=== PATIENT | male | born 1965 | race Caucasian/White ===

== ENCOUNTER → 2017-03-27 | Day surgery (SDC) | payer BC, OTHER ==
[2017-03-14 08:21] VITALS: BMI 47.0
--- NOTE | 2017-03-14 09:02 | PAT Medication Instructions ---
Service Date Mar 14, 2017. Current Home Medication List Aspirin (Aspirin Ec), 81 MG PO QAM Atorvastatin (Lipitor), 40 MG PO QAM Dapagliflozin Propanediol (Farxiga), 5 MG PO QAM Fenofibrate (Tricor ), 134 MG PO QAM Insulin Detemir (Levemir), Unknown Dose SC UD Insulin Isophan/Regular (Novolin 70/30), 1 DOSE SC UD Loratadine (Claritin), 10 MG PO QAM Metformin Hcl (Glucophage), 1,000 MG PO BIDM Omeprazole (Prilosec), 20 MG PO QAM Medication Instructions For Your Scheduled Surgery -Contact your surgeon for instructions for: Aspirin (Aspirin Ec), 81 MG PO QAM - Hold the following medications 48 hours prior to surgery: Metformin Hcl (Glucophage), 1,000 MG PO BIDM - Hold the following medications the morning of surgery: Loratadine (Claritin), 10 MG PO QAM Fenofibrate (Tricor ), 134 MG PO QAM Dapagliflozin Propanediol (Farxiga), 5 MG PO QAM - Take the following medications the morning of surgery with a sip of water: Omeprazole (Prilosec), 20 MG PO QAM Atorvastatin (Lipitor), 40 MG PO QAM OTHERWISE NOTHING TO EAT OR DRINK AFTER MIDNIGHT - Take the following medications as scheduled the day before surgery--with lunch and dinner: Insulin Detemir (Levemir), Unknown Dose SC UD Insulin Isophan/Regular (Novolin 70/30), 1 DOSE SC UD - For Insulin Dependent Diabetic patients: Test blood sugar A.M. of surgery. - If BLOOD SUGAR IS GREATER THAN 150, take half of your regular dose of: Insulin Detemir (Levemir), Unknown Dose SC UD (TAKE 15 UNITS) AND Insulin Isophan/Regular (Novolin 70/30), 1 DOSE SC UD (TAKE 14 UNITS) - If BLOOD SUGAR IS LESS THAN 150, do not take any of your insulin. If you have any questions please call us at [phone] or [phone] or [phone]
[~2017-03-27] VITALS: Ht 175.3 cm; Wt 146.5 kg
[~2017-03-27] MED LIST: ACETAMINOPHEN 325 MG TAB PO PRN; ASPI81TA28 PO; ATOR-24 PO; BACITRACIN OINT 15 GM TUBE ONE; BUPIVACAINE 0.5 % 5 MG/1 ML MPF 30ML VIAL ONE; CEFAZOLIN 3000MG IV PUSH 22.5 ML IV SCH; CEFAZOLIN SOD 2000MG/15 ML IV PUSH IV ONE; CLR10 PO; DAPA1TAB8 PO; DOCU-94 PO; FENO134C2 PO; FENTANYL CITRATE INJ 50 MCG/1 ML 2 ML VIAL ONE; LACTATED RINGER'S 1000ML 1,000 ML IV SCH; LIDOCAINE HCL 1% 20 ML VIAL ONE; LIDOCAINE HCL 2% 2 ML VIAL (20MG/ML) ONE; LVMI SC; METF1000 PO; MIDAZOLAM HCL 1 MG/ML 2ML VIAL ONE; MoRPHine SULFATE 2 MG/ML CARP IV PRN; MoRPHine SULFATE 4 MG/ML 1 ML CARP\\VIAL IV PRN; NVLG INJ; ONDANSETRON INJ 2 MG/ML 2 ML VIAL IV PRN; ONDANSETRON INJ 2 MG/ML 2 ML VIAL ONE; OXYC-57 PO; OXYCODONE/ACETAMINOPHEN 5-325 TAB PO PRN; PRLSR20 PO; PROPOFOL IV EMULSION 10 MG/ML 20 ML VIAL IV ONE; SULF800T23 PO
[2017-03-27 07:56] VITALS: BP 138/89; PULSE 79; TEMP 36.9; O2SAT 96; Ht 175.3 cm; Wt 146.5 kg
--- NOTE | 2017-03-27 11:01 | History & Physical Bridge Note ---
H&P Re-Evaluation Bridge Note: I have examined the patient, reviewed the History & Physical and in the interval since the performance of the History & Physical I have noted the following changes of clinical significance: No changes noted
--- NOTE | 2017-03-27 12:01 | [facility] Post Operative Brief Note ---
Immediate Operative Summary Operative Date Mar 27, 2017. Pre-Operative Diagnosis Hemorrhoid with Rectal Bleeding Post-Operative Diagnosis Hemorrhoid with Rectal Bleeding Procedure(s) Performed Hemorrhoidectomy Surgeon Dr. Roxy Haynes Supervisor Surgeon(s) Samaria Holloway PA-c Estimated Blood Loss 3 ml Findings Consistent with Post-Op Diagnosis Fluids (cc crystalloids) 500ml Specimens Permanent specimen A: Hemorrhoid for Patholgy Drains None Anesthesia Type MAC Complication(s) none Disposition Accompanied Pt To Recover: yes Disposition: Recovery Room / PACU
[2017-03-27 12:10] VITALS: BP 119/62; PULSE 85; TEMP 36.5; O2SAT 98
--- NOTE | 2017-03-27 12:11 | Anesthesiology Progress Note ---
Anesthesia Post Op Note Date & Time Mar 27, 2017 at 12:11 Vital Signs Pain Intensity: 0 Vital Signs Past 12 Hours Date Time Temp Pulse Resp B/P (MAP) Pulse Ox O2 Delivery O2 Flow Rate FiO2 03/27/17 07:56 36.9 79 20 138/89 (105) 96 Room Air Notes Mental Status: alert / awake / arousable, participated in evaluation Pt Amnestic to Procedure: Yes Nausea / Vomiting: adequately controlled Pain: adequately controlled Airway Patency, RR, SpO2: stable & adequate BP & HR: stable & adequate Hydration State: stable & adequate Anesthetic Complications: no major complications apparent
--- NOTE | 2017-03-27 12:13 | Discharge Instructions ---
Discharge Instructions Date of Service Mar 27, 2017. Admission Reason for Admission: Bleeding Hemorrhoids Discharge Discharge Diagnosis / Problem: same Discharge Goals Goal(s): Decrease discomfort, Improve function Activity Recommendations Activity Limitations: as noted below You may shower in 24 hours No limitations on lifting or activity however resume as tolerated No driving while taking narcotic pain medication or until you are pain free . Instructions / Follow-Up Instructions / Follow-Up You may shower in 24 hours Avoid any straining or constipation. Take stool softener (Colace) twice a day for the next 15 days. Especially while taking narcotic pain medication. Take antibiotics as prescribed for 5 days You will be given Narcotic pain medication as needed for moderate to severe pain. This medication may make you drowsy. You may take extra strength Tylenol or Ibuprofen as needed for mild pain Follow-up in surgical office as scheduled, please call office at [phone] if you do not already have an appointment You may have some rectal bleeding for next few days to a week given procedure, this is normal. If profuse bleeding occurs please call office. Current Hospital Diet Patient's current hospital diet: Discharge Diet Recommended Diet: Regular Diet Procedures Procedures Performed: Hemorrhoidectomy Pending Studies Studies pending at discharge: yes List of pending studies: Hemorrhoid pathology will be reviewed at follow up visit Medical Emergencies . Who to Call and When: Medical Emergencies: If at any time you feel your situation is an emergency, please call 911 immediately. . Non-Emergent Contact Non-Emergency issues call your: Primary Care Provider, Surgeon Call Non-Emergent contact if: you have a fever, temperature is above 101, your pain is not controlled, your pain is worsening, your pain is unusual for you, wound has increased drainage, wound has increased redness, wound has increased pain . "Provider Documentation" section prepared by Samaria Noriega. . VTE Core Measure Inpt VTE Proph given/why not?: SCD's [place] Drug Monitoring Program Search Results: patient reviewed within database, no issues identified
[2017-03-27 12:40] VITALS: BP 130/65; PULSE 78; TEMP 36.6; O2SAT 96
--- NOTE | 2017-03-27 19:46 | OPERATIVE REPORT ---
DATE OF OPERATION: 03/27/2017 PREOPERATIVE DIAGNOSIS: Rectal bleeding and hemorrhoid. POSTOPERATIVE DIAGNOSIS: Same. PROCEDURE: Hemorrhoidectomy x2. SURGEON: Roxy Haynes MD MAIL HANDLER: Samaria Holloway. ANESTHESIA: Conscious sedation plus local. ESTIMATED BLOOD LOSS: About 3 mL. FINDINGS: Two external hemorrhoids. COMPLICATIONS: None. INDICATIONS FOR THE PROCEDURE: This is a 51-year-old gentleman who presented with rectal bleeding with hemorrhoids. The patient required to do hemorrhoidectomy. I did talk to patient about the benefit, risk, and alternate procedure. I indicated the risks may include but not limited such as bleeding, infection, rectal pain. The patient understands. He signed informed consent and I answered all questions. DETAILS OF PROCEDURE: We brought patient and put in lithotomy position and patient received SCD on bilateral legs to prevent DVT. Also, patient received 2 gm Ancef IV for prophylactic antibiotic. The patient received conscious sedation by the Anesthesiology. The patient's rectal area was prepped and draped in routine sterile fashion. After a timeout, I injected local anesthesia by using 1% lidocaine mixed with 0.5% Marcaine around the rectal area. Then we found the patient has 2 external hemorrhoids, one located on the 3 o'clock and another one located on 6 o'clock. Then I used harmonic to take down these 2 hemorrhoids, no active bleeding. Then we put the dressing on. The patient tolerated the procedure well. All the instrument, needle and sponge counts were correct x2 at the end of case. The patient was transferred to recovery room in stable condition. After the procedure, I did talk to patient about the OR finding and procedure we did, and also gave patient postop care instructions. The patient understood. I will follow up patient in 1 week in my office. I attest to the content of the Intraoperative Record and any orders documented therein. Any exception s are noted below.
== END | disposition home or self-care (01) ==
LOC: C.ACU 07:15
PROVIDERS: ATTEND Surgery
DX: K64.0 First degree hemorrhoids (principal); K21.9 Gastro-esophageal reflux disease without esophagitis; E11.9 Type 2 diabetes mellitus without complications; E66.01 Morbid (severe) obesity due to excess calories; I73.9 Peripheral vascular disease, unspecified; E78.5 Hyperlipidemia, unspecified; I10 Essential (primary) hypertension; E78.2 Mixed hyperlipidemia; K76.0 Fatty (change of) liver, not elsewhere classified; Z83.3 Family history of diabetes mellitus; Z81.8 Family history of other mental and behavioral disorders; Z87.891 Personal history of nicotine dependence; Z79.84 Long term (current) use of oral hypoglycemic drugs; Z79.4 Long term (current) use of insulin; Z79.82 Long term (current) use of aspirin

== ENCOUNTER 2022-08-14 00:53 | Inpatient (IN) ==
--- NOTE | 2022-08-14 01:08 | Emergency Department Note ---
History of Present Illness General Chief complaint: Syncope (Near Syncope) Stated complaint: NEAR SYNCOPAL EPISODE Time Seen by Provider: 08/14/22 00:55 History of Present Illness This 56-year-old gentleman presents the ER for near syncopal episode. He states he was sitting on his lunch break got sweaty lightheaded and nearly passed out. He checked his blood sugar and it was fine. He is a type II diabetic. He did have some back pain but this is chronic for him. Patient states he feels much better now. Patient denies chest pain, dyspnea, fevers, numbness, tingling, localized weakness. Home Medications Medication Instructions Recorded Confirmed Type aspirin 81 mg tablet,delayed 81 mg PO QAM 03/17/19 12/19/19 History release (Kush Low Dose Aspirin) atorvastatin 40 mg tablet 40 mg PO QAM 03/17/19 12/19/19 History dapagliflozin propanediol 5 mg 5 mg PO QAM 03/17/19 12/19/19 History tablet (Farxiga) fenofibrate micronized 134 mg 134 mg PO QAM 03/17/19 12/19/19 History capsule insulin aspart U-100 100 unit/mL 32 unit subcut QDD 03/17/19 12/19/19 History (3 mL) subcutaneous pen (Novolog FlexPen U-100 Insulin aspart) insulin aspart U-100 100 unit/mL 52 unit subcut QDL 03/17/19 12/19/19 History (3 mL) subcutaneous pen (Novolog FlexPen U-100 Insulin aspart) insulin aspart U-100 100 unit/mL 54 unit subcut QDB 03/17/19 12/19/19 History (3 mL) subcutaneous pen (Novolog FlexPen U-100 Insulin aspart) insulin detemir U-100 100 unit/mL 25 unit subcut BID 03/17/19 12/19/19 History (3 mL) subcutaneous pen (Levemir FlexTouch U-100 Insulin) liraglutide 0.6 mg/0.1 mL (18 mg/3 1.8 mg subcut HS 03/17/19 12/19/19 History mL) subcutaneous pen injector (Victoza 2-Douglas) lisinopril 10 mg tablet 10 mg PO QAM 03/17/19 12/19/19 History loratadine 10 mg tablet 10 mg PO QAM 03/17/19 12/19/19 History metformin 1,000 mg tablet 1,000 mg PO BID 03/17/19 12/19/19 History montelukast 10 mg tablet 10 mg PO QAM 03/17/19 12/19/19 History teqgbaxa-otuunwgg-tonkv acid 400 1 tab PO QAM 03/17/19 12/19/19 History mcg-vit K 20 mcg-lycop 300 mcg tablet (Men's One Daily) omeprazole magnesium 20 mg 20 mg PO QAM 03/17/19 12/19/19 History tablet,delayed release (Prilosec OTC) Allergies Allergy/AdvReac Type Severity Reaction Status Date / Time No Known Allergies Allergy Verified 12/19/19 08:54 Past Med/Surg History Medical History (Updated 08/14/22 @ 02:17 by Lindsey Lutz PA-C) Arthritis, lumbar spine Diabetes mellitus, type 2 GERD (gastroesophageal reflux disease) Hyperlipidemia Hypertension Morbid obesity with BMI of 45.0-49.9, adult Surgical History History of carpal tunnel surgery of right wrist History of hand surgery left hand "scraped finger with a needle" History of removal of cyst off right elbow History of tooth extraction Hx of colonoscopy Status post trigger finger release right hand 2 fingers Family History Mother Family history of diabetes mellitus Other No family history of adverse response to anesthesia Social History Smoking Status: Former smoker Tobacco Type: Cigarettes Second Hand Exposure: No; Do You Dip or Chew Tobacco: No; Hx Alcohol Use: No Hx Substance Use: No Preferred Language: Latvian Communication Ability: Effective Mobile Practice Lead Required: No Beliefs That Will Affect Care: None Current Living Situation: Family Current Living Situation Comment: Lives with mom and sister Feels Safe at Home: Yes Assistive Devices: Glasses Review of Systems A total of 10 systems reviewed and were otherwise negative Physical Exam Vital Signs Vital Signs - 24 hr 08/14/22 01:00 08/14/22 01:07 08/14/22 01:32 Temperature 37.3 C Temperature Source Oral Pulse Rate 90 86 Respiratory Rate 20 Blood Pressure 120/90 Blood Pressure Mean 100 Pulse Oximetry 99 96 Oxygen Delivery Method Room Air Room Air Sepsis Recent Fever Within 48 Hours No Sepsis New/Unexplained Change in Mental Status No Sepsis Action Taken by Nursing No Action Required VITALS: Vitals are noted on the nurse's note and reviewed by myself. Vital signs stable. GENERAL: Pleasant patient, in no acute distress, nondiaphoretic, well-developed well-nourished. SKIN: The skin was without rashes, erythema, edema, or bruising. There is no tenting of the skin. Capillary reflex less than 2 seconds. HEAD: Normocephalic atraumatic. EARS: External auditory canals clear, EYES: Pupils equal round and reactive to light and accommodation. Conjunctivae without injection, sclerae without icterus. Extraocular movements intact. NOSE: Patent, turbinates without inflammation or discharge. MOUTH: Mucous membranes moist. Pharynx without erythema or exudate. Uvula midline. Airway patent. Tongue does not deviate. NECK: Supple without nuchal rigidity. No lymphadenopathy. No thyromegaly. Cervical spine is nontender. No JVD. HEART: Regular rate and rhythm LUNGS: Clear to auscultation bilaterally without wheezes, rales or rhonchi. No retractions or accessory muscle use. ABDOMEN: Positive bowel sounds x 4. Normal tympanic percussion. Soft, nontender, without masses or organomegaly. Shah sign negative. No guarding or rebound tenderness. No CVA tenderness MUSCULOSKELETAL: No muscle atrophy, erythema, or edema noted. NEURO: Patient was alert and oriented to person place and time. Normal sensation to light and sharp touch. No focal neurological deficits. Course Administered Medications Magnesium Sulfate/Dextrose (Magnesium Sulfate / D5w) 1 gm in 100 mls @ 100 m ls/hr IV Q1H [facility] Stop: 08/14/22 04:05 Last Admin: 08/14/22 02:14 Dose: 100 mls/hr Documented By: JILL Discontinued Medications Sodium Chloride (Nss 1000ml) 1,000 mls @ 999 mls/hr IV .Q1H1M [facility] Stop: 08/14/22 02:15 Last Infusion: 08/14/22 02:15 Dose: 0 mls/hr Documented By: Admin: 08/14/22 01:49 Dose: 999 mls/hr Documented By: JILL Medical Decision Making Medical Records Attestation: I reviewed the patient's medical records. Home Medications Current Medication List: was personally reviewed by me Laboratory Data Attestation: I reviewed the patient's lab results. 08/14/22 01:15 08/14/22 01:15 Lab Results 08/14/22 08/14/22 08/14/22 Range/Units 01:15 01:15 01:15 WBC 16.57 H (4.8-10.8) K/ul RBC 5.83 (4.70-6.10) M/uL Hgb 18.1 H (14.0-18.0) g/dl Hct 51.5 (42.0-52.0) % MCV 88.3 (80.0-100.0) fL MCH 31.0 (25.0-34.0) pg MCHC 35.1 (32.0-36.0) g/dL RDW Std Deviation 43.2 (36.4-46.3) fL RDW Coeff of Jaye 13.6 (11.5-14.5) % Plt Count 217 (130-400) K/uL MPV 10.5 (9.4-12.4) fL Immature Gran % (Auto) 1.0 % Neut % (Auto) 73.7 % Lymph % (Auto) 17.0 % [place] % (Auto) 6.8 % Eos % (Auto) 1.0 % Baso % (Auto) 0.5 % Neut # (Auto) 12.22 H (1.40-6.50) K/uL Lymph # (Auto) 2.82 (1.2-3.4) K/uL [place] # (Auto) 1.13 H (0.11-0.59) K/uL Eos # (Auto) 0.16 (0-0.50) K/uL Baso # (Auto) 0.08 (0-0.2) K/uL Immature Gran # (Auto) 0.16 (0.01-0.20) K/uL Sodium 131 L (136-145) mmol/L Potassium 3.8 (3.5-5.1) mmol/L Chloride 95 L (98-107) mmol/L Carbon Dioxide 24 (21-32) mmol/L Anion Gap 12 H (3-11) BUN 27 H (6-23) mg/dl Creatinine 2.28 H (0.6-1.4) mg/dl Est Cr Clr Drug Dosing 51.2 ml/min Est GFR ( Amer) 36.3 ml/min Est GFR (Non-Af Amer) 31.4 ml/min BUN/Creatinine Ratio 11.8 (10-20) Glucose 295 H (70-99(Fasting)) mg/dl Calcium 10.0 (8.6-10.3) mg/dl Magnesium 1.4 L (1.7-2.4) mg/dl Total Bilirubin 0.5 (0.2-1.0) mg/dl AST 28 (13-39) U/L ALT 43 (7-52) U/L Alkaline Phosphatase 65 (34-104) U/L Troponin I High Sens 11.9 (0-20) pg/ml Total Protein 8.0 (6.0-8.3) gm/dl Albumin 4.4 (3.4-5.0) gm/dl Globulin 3.6 (2.5-4.0) gm/dl Albumin/Globulin Ratio 1.2 (0.9-2) TSH 23.753 H (0.300-4.500) uIu/ml SARS-CoV-2, RNA, NAAT (NEGATIVE) 08/14/22 Range/Units 01:15 WBC (4.8-10.8) K/ul RBC (4.70-6.10) M/uL Hgb (14.0-18.0) g/dl Hct (42.0-52.0) % MCV (80.0-100.0) fL MCH (25.0-34.0) pg MCHC (32.0-36.0) g/dL RDW Std Deviation (36.4-46.3) fL RDW Coeff of Jaye (11.5-14.5) % Plt Count (130-400) K/uL MPV (9.4-12.4) fL Immature Gran % (Auto) % Neut % (Auto) % Lymph % (Auto) % [place] % (Auto) % Eos % (Auto) % Baso % (Auto) % Neut # (Auto) (1.40-6.50) K/uL Lymph # (Auto) (1.2-3.4) K/uL [place] # (Auto) (0.11-0.59) K/uL Eos # (Auto) (0-0.50) K/uL Baso # (Auto) (0-0.2) K/uL Immature Gran # (Auto) (0.01-0.20) K/uL Sodium (136-145) mmol/L Potassium (3.5-5.1) mmol/L Chloride (98-107) mmol/L Carbon Dioxide (21-32) mmol/L Anion Gap (3-11) BUN (6-23) mg/dl Creatinine (0.6-1.4) mg/dl Est Cr Clr Drug Dosing ml/min Est GFR ( Amer) ml/min Est GFR (Non-Af Amer) ml/min BUN/Creatinine Ratio (10-20) Glucose (70-99(Fasting)) mg/dl Calcium (8.6-10.3) mg/dl Magnesium (1.7-2.4) mg/dl Total Bilirubin (0.2-1.0) mg/dl AST (13-39) U/L ALT (7-52) U/L Alkaline Phosphatase (34-104) U/L Troponin I High Sens (0-20) pg/ml Total Protein (6.0-8.3) gm/dl Albumin (3.4-5.0) gm/dl Globulin (2.5-4.0) gm/dl Albumin/Globulin Ratio (0.9-2) TSH (0.300-4.500) uIu/ml SARS-CoV-2, RNA, NAAT NEGATIVE (NEGATIVE) Imaging Data Attestation: I personally reviewed and interpreted this imaging study as follows : Radiologist's Impression: Head CT 08/14/22 01:05 Exam(s): CT HEAD Without Contrast EXAM: CT Head Without Intravenous Contrast CLINICAL HISTORY: Reason for exam: syncope, HI. TECHNIQUE: Axial computed tomography images of the head/brain without intravenous contrast. Automated exposure control was utilized for the study. A dose lowering technique was utilized adhering to the principles of ALARA. COMPARISON: None. FINDINGS: Brain: Unremarkable. No hemorrhage. No significant white matter disease. No edema. Ventricles: Unremarkable. No ventriculomegaly. Bones/joints: Unremarkable. No acute fracture. Soft tissues: Unremarkable. Sinuses: Unremarkable as visualized. No acute sinusitis. Mastoid air cells: Unremarkable as visualized. No mastoid effusion. IMPRESSION: Normal CT brain. Electronically signed by: Fidelia Interiano MD 08/14/22 02:16 AM MDM Narrative Prior records/ancillary studies reviewed. Triage Nursing notes reviewed. Additional history obtained from nursing. The patient's history was concerning for syncope. Differential diagnosis: Etiologies such as vasovagal event, infection, hypoglycemia, electrolyte abnormalities, cardiac sources, intracerebral event, toxicologic, neurologic, as well as others were entertained. Physical examination: As above ER treatment provided: IV hydration with normal saline Magnesium was ordered On reassessment the patient felt better. An order was placed for continuous cardiac monitoring. The monitor shows a rate of 60-100 with a sinus rhythm per my interpretation. Diagnostics interpretation by me: ECG: ordered for syncope ECG: Normal sinus, normal intervals, anterior infarct, no acute ST-T wave changes, rate of 88. Impression normal sinus rhythm independently interpreted by myself I think arrhythmia is unlikely. EKG shows normal sinus rhythm with no interval abnormalities such as QT prolongation or WPW. There are no findings to suggest Brugada syndrome. Cardiac monitoring in the emergency department reveals no tachycardic or bradycardic dysrhythmia. Hypertrophic cardiomyopathy was considered but there are no clear historical elements pointing toward this. EKG is not suggestive. The QRS voltage is not extremely large The labs Independently Interpreted by myself revealed elevated creatinine, low magnesium Elevated TSH and T4 levels were ordered Imaging studies: Chest x-ray with no acute consolidation, pneumothorax or free air per my end of interpretation Head CT negative for intracranial bleed per my independent interpretation and report was reviewed as above. Consultation: A consultation was placed with the hospitalist. The case was discussed and diagnostics were reviewed. The patient was evaluated in the ER for further treatment. This appears to be consistent with acute kidney injury, near syncope, abnormal thyroid levels, and low magnesium. Patient was hydrated as above. Magnesium was ordered. Labs and diagnostics were independent interpreted by myself. He was reassessed multiple times. Medicine was consulted and the case was discussed. He will be admitted to the medical service for further evaluation and treatment. By the evaluation outlined above emergent etiologies such as infection, hypoglycemia, intracerebral event, toxicologic, neurologic,as well as others were deemed relatively unlikely. The pt informed about the findings as listed above. All questions were answered and pleased with the treatment. The chart was completed utilizing [email or web address] voice recognition software. Grammatical errors, random word insertions, pronoun errors, and incomplete sentences are an occassional consequence of this system due to software limitations, ambient noise, and hardware issues. Any formal questions or concerns about the content, text, or information contained within the body of this dictation should be directly addressed to the physician pharmacist assistant for clarification. Impression & Plan Near syncope, Acute kidney injury, Hypomagnesemia, Acute hyperglycemia Discharge Plan Visit Data Chief Complaint: Syncope (Near Syncope) Stated Complaint: NEAR SYNCOPAL EPISODE ED Provider: Marisa Monterroso ED Midlevel Provider: Lindsey Lutz Discharge Problem: Near syncope, Acute kidney injury, Hypomagnesemia, Acute hyperglycemia Patient Disposition: Being Evaluated by Hospitalist Condition: Good Forms Stand Alone Forms: My [facility] Blueprint Medicines Prescriptions Prescriptions: No Action atorvastatin 40 mg Tablet 40 mg PO QAM aspirin [Kush Low Dose Aspirin] 81 mg Tablet,Delayed Release (Dr/Ec) 81 mg PO QAM fenofibrate micronized 134 mg Capsule 134 mg PO QAM metformin 1,000 mg Tablet 1,000 mg PO BID lisinopril 10 mg Tablet 10 mg PO QAM montelukast 10 mg Tablet 10 mg PO QAM loratadine 10 mg Tablet 10 mg PO QAM insulin aspart U-100 [Novolog FlexPen U-100 Insulin] 100 unit/mL (3 mL) Insulin Pen 54 unit SUBCUT QDB insulin aspart U-100 [Novolog FlexPen U-100 Insulin] 100 unit/mL (3 mL) Insulin Pen 52 unit SUBCUT QDL insulin aspart U-100 [Novolog FlexPen U-100 Insulin] 100 unit/mL (3 mL) Insulin Pen 32 unit SUBCUT QDD omeprazole magnesium [Prilosec OTC] 20 mg Tablet,Delayed Release (Dr/Ec) 20 mg PO QAM Levemir FlexTouch U100 Insulin 100 unit/mL (3 mL) Insulin Pen 25 unit SUBCUT BID Rx Instructions: 12.5 units taken Victoza 2-Douglas 0.6 mg/0.1 mL (18 mg/3 mL) Pen Injector 1.8 mg SUBCUT HS Men's One Daily 400-20-300 mcg Tablet 1 tab PO QAM Farxiga 5 mg Tablet 5 mg PO QAM Referrals Referrals: Krystina Buckner, [Primary Care Provider] -
[2022-08-14] MEDS ORDERED: SODIUM CHLORIDE 0.9% 1000ML 1,000 ML IV SCH (01:15)
[2022-08-14 01:32] LABS: Basophils # (auto) 0.08 K/uL (0-0.2); Basophils % (auto) 0.5 %; Eosinophils # (auto) 0.16 K/uL (0-0.50); Hematocrit (blood only) 51.5 % (42.0-52.0); Hemoglobin 18.1 g/dl (14.0-18.0); Immature Granulocytes # (auto) 0.16 K/uL (0.01-0.20); Lymphocytes # (auto) 2.82 K/uL (1.2-3.4); Mean Corpuscular Hgb Conc 35.1 g/dL (32.0-36.0); Mean Corpuscular Volume 88.3 fL (80.0-100.0); Mean Platelet Volume 10.5 fL (9.4-12.4); Monocytes # (auto) 1.13 K/uL (0.11-0.59); Monocytes % (auto) 6.8 %; Neutrophils # (auto) 12.22 K/uL (1.40-6.50); Neutrophils % (auto) 73.7 %; Platelet Count 217 K/uL (130-400); RDW Coefficient of Variation 13.6 % (11.5-14.5); RDW Standard Deviation 43.2 fL (36.4-46.3); Red Blood Count 5.83 M/uL (4.70-6.10); White Blood Count 16.57 K/ul (4.8-10.8)
[2022-08-14 01:55] LABS: Albumin Globulin Ratio 1.2 (0.9-2); Albumin Level 4.4 gm/dl (3.4-5.0); BUN Creatinine Ratio 11.8 (10-20); Bilirubin,Total 0.5 mg/dl (0.2-1.0); Creatinine Clr Calc Pharmacy 51.2 ml/min; Est GFR (African American) 36.3 ml/min; Est GFR (Non-African American) 31.4 ml/min; Globulin 3.6 gm/dl (2.5-4.0); Magnesium 1.4 mg/dl (1.7-2.4); Potassium 3.8 mmol/L (3.5-5.1)
[2022-08-14 02:02] LABS: Troponin I High Sensitivity 11.9 pg/ml (0-20)
[2022-08-14 02:03] LABS: Thyroid Stimulating Hormone 23.753 uIu/ml (0.300-4.500)
[2022-08-14] MEDS: MAGNESIUM SULFATE / D5W 1 GM/100 ML BAG IV SCH ×2 (02:14→03:31)
--- NOTE | 2022-08-14 02:17 | CT Scan Report ---
Exam(s): CT HEAD Without Contrast EXAM: CT Head Without Intravenous Contrast CLINICAL HISTORY: Reason for exam: syncope, HI. TECHNIQUE: Axial computed tomography images of the head/brain without intravenous contrast. Automated exposure control was utilized for the study. A dose lowering technique was utilized adhering to the principles of ALARA. COMPARISON: None. FINDINGS: Brain: Unremarkable. No hemorrhage. No significant white matter disease. No edema. Ventricles: Unremarkable. No ventriculomegaly. Bones/joints: Unremarkable. No acute fracture. Soft tissues: Unremarkable. Sinuses: Unremarkable as visualized. No acute sinusitis. Mastoid air cells: Unremarkable as visualized. No mastoid effusion. IMPRESSION: Normal CT brain. Electronically signed by: Fidelia Interiano MD 08/14/22 02:16 AM
[2022-08-14] MEDS ORDERED: ALBUMIN 25% 25 GM/100 ML VIAL IV ONE (02:27)
[2022-08-14 02:40] LABS: T4 Free Thyroxine 0.84 ng/dl (0.61-1.60)
--- NOTE | 2022-08-14 03:24 | History & Physical Report ---
Date of Service August 14, 2022 Assessment & Plan (1) ARF (acute renal failure): Plan: Suspect hypovolemia, clinical dehydration AGMA secondary to above Syncope likely orthostasis given borderline BP at the ER rule out arrhythmia, obstructive cardiac pathology hyperlipidemia on statin Rx bronchial asthma, stable hx PVD as per records DM 2 insulin requiring, suboptimal control as of recent hemoglobin A1c of 10.2 last June 2022 Subclinical hypothyroidism past tobacco abuse Medical telemetry Baseline UA, monitor creatinine response to IVF Renal ultrasound, nephrology consult if without improvement in kidney function Appropriate to hold home BP meds for now given borderline BP Check orthostatic vitals, TTE for syncope work-up Basal bolus insulin adjusted for decreased renal function, ISS BG goal 1 10-1 40, carb count coverage Initiate levothyroxine, recheck outpatient TSH next month DVT prophylaxis. Heparin subcu Full code Text document was generated using [employer] voice recognition software. It may contain grammatical or spelling errors. Kindly contact undersigned for clarification of any documentation item in question. History of Present Illness Chief Complaint: Syncope Primary Care Provider: Krystina Buckner DO History obtained from patient and records. Medical history significant for hypertension, hyperlipidemia, bronchial asthma, PVD as per records, DM 2 insulin requiring, past tobacco abuse. Patient returned to work at [employer] yesterday after being off for a month to recover from elective outpatient trigger finger release surgery at [facility]. Uneventful postop recovery. Pain controlled without OTC NSAID intake. Patient was stocking when he started not feeling well, dizzy, felt like he was going to pass out. No headache, no chest pain, no shortness of breath, no abdominal pain. Patient alerted his work mates later told him that he looked very pale. Transient syncopal event witnessed by workmates. Patient did not fall because of workmates supporting him. No witnessed seizures, tongue biting, incontinence. Patient woke up after a few moments. Patient sent to the ER for evaluation. Currently feels much better after IV fluids. Lowest SBP at the ER 100s. Medical History as above Surgical History : Multiple trigger finger release surgeries, carpal tunnel surgery Family History : Dementia, DM, stroke, alcoholism Personal/Social history past tobacco abuse, No EtOH intake, [employer] employee Allergies Allergy/AdvReac Type Severity Reaction Status Date / Time No Known Allergies Allergy Verified 12/19/19 08:54 Home Medications Medication Instructions Recorded Confirmed Type aspirin 81 mg tablet,delayed 81 mg PO QAM 03/17/19 08/14/22 History release (Kush Low Dose Aspirin) atorvastatin 40 mg tablet 40 mg PO QAM 03/17/19 08/14/22 History insulin aspart U-100 100 unit/mL 28 unit subcut QDD 03/17/19 08/14/22 History (3 mL) subcutaneous pen (Novolog FlexPen U-100 Insulin aspart) insulin aspart U-100 100 unit/mL 52 unit subcut QDL 03/17/19 08/14/22 History (3 mL) subcutaneous pen (Novolog FlexPen U-100 Insulin aspart) insulin aspart U-100 100 unit/mL 54 unit subcut QDB 03/17/19 08/14/22 History (3 mL) subcutaneous pen (Novolog FlexPen U-100 Insulin aspart) insulin detemir U-100 100 unit/mL 40 unit subcut QDB 03/17/19 08/14/22 History (3 mL) subcutaneous pen (Levemir FlexTouch U-100 Insulin) lisinopril 10 mg tablet 10 mg PO QAM 03/17/19 08/14/22 History metformin 1,000 mg tablet 1,000 mg PO BID 03/17/19 08/14/22 History omeprazole magnesium 20 mg 20 mg PO QAM 03/17/19 08/14/22 History tablet,delayed release (Prilosec OTC) insulin detemir U-100 100 unit/mL 25 unit subcut QDD 08/14/22 08/14/22 History (3 mL) subcutaneous pen semaglutide 1 mg/dose (2 mg/1.5 1 mg subcut WK 08/14/22 08/14/22 History mL) subcutaneous pen injector (Ozempic) Past Med/Surg History Medical History (Updated 08/14/22 @ 07:11 by Juan Miguel Sifuentes MD) Arthritis, lumbar spine Diabetes mellitus, type 2 GERD (gastroesophageal reflux disease) Hyperlipidemia Hypertension Morbid obesity with BMI of 45.0-49.9, adult Surgical History History of carpal tunnel surgery of right wrist History of hand surgery left hand "scraped finger with a needle" History of removal of cyst off right elbow History of tooth extraction Hx of colonoscopy Status post trigger finger release right hand 2 fingers Family History Mother Family history of diabetes mellitus Other No family history of adverse response to anesthesia Social History Smoking Status: Former smoker Tobacco Type: Cigarettes Smoking End Date: 10+ years ago; Second Hand Exposure: No; Do You Dip or Chew Tobacco: No; Hx Alcohol Use: No Hx Substance Use: No Preferred Language: Egyptian Communication Ability: Effective 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 Beliefs That Will Affect Care: None Current Living Situation: Family Current Living Situation Comment: lives at home w sister Other Information That Helps Us Care for You: No Feels Safe at Home: Yes Assistive Devices: Glasses Review of Systems Review of Systems: As per HPI, all other systems reviewed and negative Physical Exam Physical Exam: GENERAL: Comfortable, pleasant, morbidly obese, no respiratory distress SKIN: Normal color, warm HEENT: [place] palpebral conjunctivae, no ptosis, dry buccal mucosa NECK : Supple, short neck, no tenderness CHEST : CTA, no tenderness HEART : RRR, no obvious murmurs ABDOMEN: Some distention, nontender EXTREMITIES : Minimal LE swelling, no LE tenderness, no other conspicuous de formities noted NEUROLOGIC : Coherent, no facial asymmetry, no other gross focality Results & Data Results & Data Vital Signs (Past 12 Hours) Vital Signs Temp Pulse Pulse Resp BP BP Pulse Ox 08/14/22 03:00 82 18 106/58 L 96 08/14/22 01:32 86 08/14/22 01:07 96 08/14/22 01:00 37.3 C 90 20 120/90 99 O2 Del Method 08/14/22 03:00 Room Air 08/14/22 01:32 08/14/22 01:07 Room Air 08/14/22 01:00 Room Air Laboratory Results Laboratory Results WBC 16.57 K/ul (4.8-10.8) H 08/14/22 01:15 RBC 5.83 M/uL (4.70-6.10) 08/14/22 01:15 Hgb 18.1 g/dl (14.0-18.0) H 08/14/22 01:15 Hct 51.5 % (42.0-52.0) 08/14/22 01:15 MCV 88.3 fL (80.0-100.0) 08/14/22 01:15 MCH 31.0 pg (25.0-34.0) 08/14/22 01:15 MCHC 35.1 g/dL (32.0-36.0) 08/14/22 01:15 RDW Std Deviation 43.2 fL (36.4-46.3) 08/14/22 01:15 RDW Coeff of Jaye 13.6 % (11.5-14.5) 08/14/22 01:15 Plt Count 217 K/uL (130-400) 08/14/22 01:15 MPV 10.5 fL (9.4-12.4) 08/14/22 01:15 Immature Gran % (Auto) 1.0 % 08/14/22 01:15 Neut % (Auto) 73.7 % 08/14/22 01:15 Lymph % (Auto) 17.0 % 08/14/22 01:15 [place] % (Auto) 6.8 % 08/14/22 01:15 Eos % (Auto) 1.0 % 08/14/22 01:15 Baso % (Auto) 0.5 % 08/14/22 01:15 Neut # (Auto) 12.22 K/uL (1.40-6.50) H 08/14/22 01:15 Lymph # (Auto) 2.82 K/uL (1.2-3.4) 08/14/22 01:15 [place] # (Auto) 1.13 K/uL (0.11-0.59) H 08/14/22 01:15 Eos # (Auto) 0.16 K/uL (0-0.50) 08/14/22 01:15 Baso # (Auto) 0.08 K/uL (0-0.2) 08/14/22 01:15 Immature Gran # (Auto) 0.16 K/uL (0.01-0.20) 08/14/22 01:15 Sodium 131 mmol/L (136-145) L 08/14/22 01:15 Potassium 3.8 mmol/L (3.5-5.1) 08/14/22 01:15 Chloride 95 mmol/L (98-107) L 08/14/22 01:15 Carbon Dioxide 24 mmol/L (21-32) 08/14/22 01:15 Anion Gap 12 (3-11) H 08/14/22 01:15 BUN 27 mg/dl (6-23) H 08/14/22 01:15 Creatinine 2.28 mg/dl (0.6-1.4) H 08/14/22 01:15 Est Cr Clr Drug Dosing 51.2 ml/min 08/14/22 01:15 Est GFR ( Amer) 36.3 ml/min 08/14/22 01:15 Est GFR (Non-Af Amer) 31.4 ml/min 08/14/22 01:15 BUN/Creatinine Ratio 11.8 (10-20) 08/14/22 01:15 Glucose 295 mg/dl (70-99(Fasting)) H 08/14/22 01:15 Calcium 10.0 mg/dl (8.6-10.3) 08/14/22 01:15 Magnesium 1.4 mg/dl (1.7-2.4) L 08/14/22 01:15 Total Bilirubin 0.5 mg/dl (0.2-1.0) 08/14/22 01:15 AST 28 U/L (13-39) 08/14/22 01:15 ALT 43 U/L (7-52) 08/14/22 01:15 Alkaline Phosphatase 65 U/L (34-104) 08/14/22 01:15 Total Creatine Kinase 131 U/L (30-223) 08/14/22 01:15 Troponin I High Sens 11.9 pg/ml (0-20) 08/14/22 01:15 Total Protein 8.0 gm/dl (6.0-8.3) 08/14/22 01:15 Albumin 4.4 gm/dl (3.4-5.0) 08/14/22 01:15 Globulin 3.6 gm/dl (2.5-4.0) 08/14/22 01:15 Albumin/Globulin Ratio 1.2 (0.9-2) 08/14/22 01:15 TSH 23.753 uIu/ml (0.300-4.500) H 08/14/22 01:15 Free T4 0.84 ng/dl (0.61-1.60) 08/14/22 01:15 SARS-CoV-2, RNA, NAAT NEGATIVE (NEGATIVE) 08/14/22 01:[address] 08/14/22 01:05 Exam(s): CT HEAD Without Contrast EXAM: CT Head Without Intravenous Contrast CLINICAL HISTORY: Reason for exam: syncope, HI. TECHNIQUE: Axial computed tomography images of the head/brain without intravenous contrast. Automated exposure control was utilized for the study. A dose lowering technique was utilized adhering to the principles of ALARA. COMPARISON: None. FINDINGS: Brain: Unremarkable. No hemorrhage. No significant white matter disease. No edema. Ventricles: Unremarkable. No ventriculomegaly. Bones/joints: Unremarkable. No acute fracture. Soft tissues: Unremarkable. Sinuses: Unremarkable as visualized. No acute sinusitis. Mastoid air cells: Unremarkable as visualized. No mastoid effusion. IMPRESSION: Normal CT brain. Electronically signed by: Fidelia Interiano MD 08/14/22 02:16 AM Diagnostic Findings Chest x-ray per my interpretation cardiomegaly, atelectasis EKG as per my interpretation : Rate 90, NSR, LAD, LAFB, no ischemia
[2022-08-14] MEDS ORDERED: oxyCODONE HCL IR 5 MG TAB (IMMEDIATE RELEASE) PO PRN (03:28)
[2022-08-14] MEDS ORDERED: PROMETHAZINE HCL 12.5 MG in SODIUM CHLORIDE 0.9% 50 ML IV PRN (03:29)
[2022-08-14] MEDS ORDERED: ACETAMINOPHEN 325 MG TAB PO PRN (04:37)
[2022-08-14] MEDS ORDERED: GLUCOSE 40% GEL 15 GM TUBE PO PRN (04:37)
[2022-08-14] MEDS ORDERED: DEXTROSE 50% 50 ML SYRINGE IV PRN (04:37)
[2022-08-14] MEDS ORDERED: GLUCAGON FOR INJ 1 MG VIAL SQ PRN (04:37)
[2022-08-14] MEDS ORDERED: CARBOHYDRATES FOR HYPOGLYCEMIA PO PRN (04:37)
[2022-08-14] MEDS ORDERED: GLUCOSE 10 TAB/TUBE PO PRN (04:37)
[2022-08-14] MEDS: INSULIN ASPART PER UNIT CHARGE SC SCH ×4 (05:16→20:39)
[2022-08-14 05:43] LABS: Base Excess VBG -2.8 mEq/L; HCO3 VBG 22 mmol/L; Oxygen Saturation VBG 75.5 %; PCO2 VBG 37 mmHg (38-50); PO2 VBG 45 mmHg; pH VBG 7.38 (7.36-7.41)
[2022-08-14] MEDS ORDERED: ALBUMIN 25% 25 GM/100 ML VIAL IV SCH (06:00)
[2022-08-14 06:04] LABS: Calcium 9.5 mg/dl (8.6-10.3); Creatinine Clr Calc Pharmacy 66.1 ml/min; Est GFR (African American) 49.7 ml/min; Est GFR (Non-African American) 42.9 ml/min; Potassium 4.3 mmol/L (3.5-5.1)
[2022-08-14] MEDS: HEPARIN SOD 5,000 UNIT/0.5 ML VIAL SQ SCH ×3 (06:30→20:39)
[2022-08-14] MEDS: LEVOTHYROXINE SODIUM 25 MCG TABLET PO SCH (06:30)
--- NOTE | 2022-08-14 06:59 | XRay Report ---
SINGLE VIEW CHEST CLINICAL HISTORY: Generalized weakness. Near syncope. FINDINGS: An AP, portable, upright chest radiograph is obtained. No prior studies are available for c omparison at the time of dictation. The examination is degraded by portable technique comment apical lordotic positioning, and patient rotation. The heart is top normal for projection. The lungs and ple ural spaces are clear noting bibasilar scarring/atelectasis. No pneumothorax is seen. The bony thora x is grossly intact. IMPRESSION: No acute cardiopulmonary abnormality. ACT 112: Negative or not required by law. Electronically signed by: Emmanuel Perdue M.D. 08/14/2022 6:58 AM
[2022-08-14] MEDS: LACTATED RINGER'S 1,000 ML IV SCH ×2 (07:14→16:47)
[2022-08-14] MEDS: ASPIRIN 81 MG ECTAB PO SCH (07:39)
[2022-08-14] MEDS: PANTOprazole 40 MG TAB PO SCH (07:39)
[2022-08-14] MEDS: ATORVASTATIN 40 MG TAB PO SCH (07:39)
[2022-08-14] MEDS: LANTUS PER UNIT CHARGE SQ SCH ×2 (08:15→20:40)
[2022-08-14 10:31] LABS: Appearance Urine Cloudy (Clear); Bacteria Urine Automated Negative (Negative); Blood Urine Negative (Negative); Color Urine Dark Yellow; Epithelial Cell Urine Auto 20-30 /lpf (0-5); Glucose Urine UA 2+ (Negative); Ketones Urine Trace (Negative); Leukocyte Esterase Urine Negative (Negative); Nitrite Urine Negative (Negative); Protein Urine 2+ (Negative); Specific Gravity Urine 1.021 (1.000-1.030); Urobilinogen Urine Negative (Negative)
[2022-08-14 10:37] LABS: Bilirubin Urine 1+ (Negative)
[2022-08-14 10:42] LABS: Calcium Oxalate Crystals Urine Present (None Prsent)
--- NOTE | 2022-08-14 13:31 | Hospitalist Progress Note ---
Date of Service August 14, 2022 Assessment & Plan (1) ARF (acute renal failure): Plan: Suspect hypovolemia, clinical dehydration No acidosis Has been receiving intravenous fluid and drinking enough Kidney function this morning is improving We will continue current management Monitor kidney function and electrolytes Dizziness with presyncope No associated symptoms with the dizziness and presyncope Blood pressure noted to be low in the emergency room with MARCUS Blood pressure remains stable at 118/74 during this morning Has been feeling much better and no more dizziness and/or presyncope No arrhythmias and echo of the heart remain unremarkable We will get PT and OT evaluation prior to discharge Leukocytosis Likely secondary to his stress No evidence of infection-UA has been unremarkable and chest x-ray did not show any pneumonia We will monitor CBC Other significant medical conditions are stable and are as below Hyperlipidemia on statin Rx Bronchial asthma, stable hx PVD as per records DM 2 insulin requiring, suboptimal control as of recent hemoglobin A1c of 10.2 last June 2022 Basal bolus insulin adjusted for decreased renal function, ISS BG goal 1 10-1 40, carb count coverage Subclinical hypothyroidism TSH is high and thyroxine level is borderline low Will start with small dose of thyroxine of 25 mcg and monitor as an outpatient Past tobacco abuse DVT prophylaxis. Heparin subcu Full code Admission and Anticipated Discharge Date Admission Date: August 14, 2022 Subjective 08/14/2022 The patient was seen and examined in medical telemetry unit He was admitted with lightheadedness, dizziness and near syncope He was noted to be hypotensive and also acute kidney injury on admission Has been feeling much better since admission Denies any significant symptoms today Review of Systems Review of Systems: All systems reviewed and are unremarkable except as noted below Physical Exam Physical Exam: Lying in bed comfortably Constitutional: well developed, well nourished and + obese; not ill appearing Eyes: PERRL, conjunctivae normal, anicteric sclerae ENMT: external ear and nose normal, oropharynx normal Neck: trachea midline, no thyromegaly Respiratory: no respiratory distress Auscultation: lungs clear to auscultation bilaterally Cardiovascular: Rate/Rhythm: regular rate and regular rhythm; not tachycardic Heart Sounds: normal S1 and normal S2; no murmur Extremities: + edema (No edema) Gastrointestinal (Abdomen): Inspection/Auscultation: normal bowel sounds; abdomen not distended Percussion/Palpation: abdomen soft; abdomen nontender Musculoskeletal: No acute arthritis involving any joint Neurologic: normal touch/pain/proprioception and moves all extremities; no focal motor deficits Psychiatric: A+Ox3, euthymic affect Lymphatic: no cervical or axillary lymphadenopathy Results & Data Results & Data Vital Signs (Past 12 Hours) Vital Signs Temp Pulse Pulse Resp BP BP Pulse Ox 08/14/22 11:10 36.9 C 75 20 118/74 96 08/14/22 08:00 08/14/22 08:00 80 08/14/22 07:46 36.6 C 72 20 109/74 96 08/14/22 05:49 81 08/14/22 05:24 36.9 C 81 20 127/82 97 08/14/22 04:30 36.9 C 81 20 127/82 97 08/14/22 03:00 82 18 106/58 L 96 08/14/22 01:32 86 O2 Del Method 08/14/22 11:10 Room Air 08/14/22 08:00 Room Air 08/14/22 08:00 08/14/22 07:46 Room Air 08/14/22 05:49 08/14/22 05:24 Room Air 08/14/22 04:30 Room Air 08/14/22 03:00 Room Air 08/14/22 01:32 Laboratory Results Short CBC 08/14/22 Range/Units 01:15 WBC 16.57 H (4.8-10.8) K/ul Hgb 18.1 H (14.0-18.0) g/dl Hct 51.5 (42.0-52.0) % Plt Count 217 (130-400) K/uL BMP 08/14/22 08/14/22 01:15 05:32 Sodium 131 L 130 L Potassium 3.8 4.3 Chloride 95 L 99 Carbon Dioxide 24 20 L BUN 27 H 30 H Creatinine 2.28 H 1.76 H D Glucose 295 H 229 H Calcium 10.0 9.5 Cardiac Enzymes 08/14/22 Range/Units 01:15 Total Creatine Kinase 131 (30-223) U/L Liver Function 08/14/22 Range/Units 01:15 Total Bilirubin 0.5 (0.2-1.0) mg/dl AST 28 (13-39) U/L ALT 43 (7-52) U/L Alkaline Phosphatase 65 (34-104) U/L Albumin 4.4 (3.4-5.0) gm/dl Urine 08/14/22 Range/Units 10:15 Urine Color Dark Yellow Urine Appearance Cloudy A (Clear) Urine pH 5.0 (4.5-7.5) Ur Specific [place] 1.021 (1.000-1.030) Urine Protein 2+ H (Negative) Urine Glucose (UA) 2+ H (Negative) Medications Administered Current Inpatient Medications Acetaminophen (Acetaminophen 325 Mg Tab) 650 mg PO Q4H PRN PRN Reason: Pain or Fever Stop: 09/13/22 04:36 Aspirin (Aspirin 81 Mg Ectab) [facility]: 09/13/22 08:59 Last Admin: 08/14/22 07:39 Dose: 81 mg Atorvastatin Calcium (Atorvastatin 40 Mg Tab) 40 mg PO [facility] Stop: 09/13/22 08:59 Last Admin: 08/14/22 07:39 Dose: 40 mg Dextrose (Dextrose 50% 50 Ml Syringe) 25 - 50 ml IV UD PRN; Protocol PRN Reason: Hypoglycemia Protocol Stop: 09/13/22 04:36 Glucagon (Glucagon For Inj 1 Mg Vial) 1 mg SQ UD PRN; Protocol PRN Reason: Hypoglycemia Protocol Stop: 09/13/22 04:36 Glucose (Glucose 10 Tab/Tube) 4 - 8 tab PO UD PRN; Protocol PRN Reason: Hypoglycemia Treatment Stop: 09/13/22 04:36 Glucose (Glucose 40% Gel 15 Gm Tube) 15 - 30 gm PO UD PRN; Protocol PRN Reason: Hypoglycemia Protocol Stop: 09/13/22 04:36 Heparin Sodium (Porcine) (Heparin Sod 5,000 Unit/0.5 Ml Vial) 5,000 units SQ Q8 RAHUL Stop: 09/13/22 05:59 Last Admin: 08/14/22 06:30 Dose: 5,000 units Promethazine HCl 12.5 mg/ (Sodium Chloride) 50.5 mls @ 202 mls/hr IV Q6H PRN PRN Reason: Nausea And Vomiting Stop: 09/13/22 03:28 Lactated Ringer's (Lr) 1,000 mls @ 100 mls/hr IV .Q10H [facility] Stop: 08/15/22 07:14 Last Admin: 08/14/22 07:14 Dose: 100 mls/hr Insulin Aspart (Insulin Aspart Per Unit Charge) 0 units SC ACHS [facility] Stop: 09/13/22 04:36 Last Admin: 08/14/22 12:02 Dose: 7 units Insulin Glargine (Lantus Per Unit Charge) 30 units SQ BID [facility] Stop: 09/13/22 08:59 Last Admin: 08/14/22 08:15 Dose: 30 units Levothyroxine Sodium (Levothyroxine Sodium 25 Mcg Tablet) 25 mcg PO DAILYBB [facility] Stop: 09/13/22 06:29 Last Admin: 08/14/22 06:30 Dose: 25 mcg Miscellaneous (Carbohydrates For Hypoglycemia ) 15 - 30 gm PO UD PRN PRN Reason: Hypoglycemia Protocol Stop: 09/13/22 04:36 Oxycodone HCl (Oxycodone Hcl Ir 5 Mg Tab (Immediate Release)) 5 mg PO Q4H PRN PRN Reason: Pain Stop: 08/28/22 03:27 Pantoprazole Sodium (Pantoprazole 40 Mg Tab) 40 mg PO QAM [facility] Stop: 09/13/22 08:59 Last Admin: 08/14/22 07:39 Dose: 40 mg
[2022-08-15] MEDS: LACTATED RINGER'S 1,000 ML IV SCH (03:07)
[2022-08-15] MEDS: HEPARIN SOD 5,000 UNIT/0.5 ML VIAL SQ SCH (05:54)
[2022-08-15] MEDS: LEVOTHYROXINE SODIUM 25 MCG TABLET PO SCH (05:54)
[2022-08-15 06:17] LABS: Basophils # (auto) 0.06 K/uL (0-0.2); Basophils % (auto) 0.7 %; Eosinophils # (auto) 0.21 K/uL (0-0.50); Eosinophils % (auto) 2.5 %; Hematocrit (blood only) 46.5 % (42.0-52.0); Hemoglobin 16.4 g/dl (14.0-18.0); Immature Granulocytes # (auto) 0.05 K/uL (0.01-0.20); Immature Granulocytes % (auto) 0.6 %; Lymphocytes # (auto) 2.75 K/uL (1.2-3.4); Lymphocytes % (auto) 32.2 %; Mean Corpuscular Hemoglobin 30.8 pg (25.0-34.0); Mean Corpuscular Hgb Conc 35.3 g/dL (32.0-36.0); Mean Corpuscular Volume 87.4 fL (80.0-100.0); Mean Platelet Volume 10.2 fL (9.4-12.4); Monocytes # (auto) 0.59 K/uL (0.11-0.59); Monocytes % (auto) 6.9 %; Neutrophils # (auto) 4.88 K/uL (1.40-6.50); Neutrophils % (auto) 57.1 %; Platelet Count 175 K/uL (130-400); RDW Coefficient of Variation 13.7 % (11.5-14.5); RDW Standard Deviation 43.8 fL (36.4-46.3); Red Blood Count 5.32 M/uL (4.70-6.10); White Blood Count 8.54 K/ul (4.8-10.8)
[2022-08-15 07:18] LABS: Calcium 9.1 mg/dl (8.6-10.3); Potassium 4.6 mmol/L (3.5-5.1)
[2022-08-15 07:32] LABS: Creatinine Clr Calc Pharmacy 119.1 ml/min; Est GFR (African American) 100.9 ml/min; Est GFR (Non-African American) 87.1 ml/min
[2022-08-15 07:33] LABS: BUN Creatinine Ratio 24.5 (10-20)
[2022-08-15] MEDS: PANTOprazole 40 MG TAB PO SCH (08:38)
[2022-08-15] MEDS: ASPIRIN 81 MG ECTAB PO SCH (08:38)
[2022-08-15] MEDS: ATORVASTATIN 40 MG TAB PO SCH (08:38)
[2022-08-15] MEDS: LANTUS PER UNIT CHARGE SQ SCH (08:39)
[2022-08-15] MEDS: INSULIN ASPART PER UNIT CHARGE SC SCH ×2 (08:40→12:11)
--- NOTE | 2022-08-15 08:41 | Electrocardiogram Report ---
Test Reason : Blood Pressure : / mmHG Vent. Rate : 088 BPM Atrial Rate : 088 BPM P-R Int : 172 ms QRS Dur : 082 ms QT Int : 348 ms P-R-T Axes : -12 -11 002 degrees QTc Int : 421 ms Normal sinus rhythm Possible Anterior infarct , age undetermined Otherwise normal ECG When compared with ECG of 19-DEC-2019 08:58, No significant change was found Confirmed by Chris Ralph ([id number]) on 08/15/2022 8:41:40 AM Referred By: REFERRED SELF Confirmed By:Chris Ralph
--- NOTE | 2022-08-15 11:03 | Hospitalist Progress Note ---
Date of Service August 15, 2022 Assessment & Plan (1) ARF (acute renal failure): Plan: Suspect hypovolemia, clinical dehydration No acidosis Has been receiving intravenous fluid and drinking enough Kidney function this morning is improving We will continue current management Monitor kidney function and electrolytes Kidney function has been normalized Advised to drink more fluid Be discharged home this afternoon Dizziness with presyncope No associated symptoms with the dizziness and presyncope Blood pressure noted to be low in the emergency room with MARCUS Blood pressure remains stable at 118/74 during this morning Has been feeling much better and no more dizziness and/or presyncope No arrhythmias and echo of the heart remain unremarkable We will get PT and OT evaluation prior to discharge PT recommended home and he has been ambulating in the room and in the hallway without any symptoms Discharged home this afternoon Leukocytosis Likely secondary to his stress No evidence of infection-UA has been unremarkable and chest x-ray did not show any pneumonia We will monitor CBC-normalized,no infection Other significant medical conditions are stable and are as below Hyperlipidemia on statin Rx Bronchial asthma, stable hx PVD as per records DM 2 insulin requiring, suboptimal control as of recent hemoglobin A1c of 10.2 last June 2022 Basal bolus insulin adjusted for decreased renal function, ISS BG goal 1 10-1 40, carb count coverage Subclinical hypothyroidism TSH is high and thyroxine level is borderline low Will start with small dose of thyroxine of 25 mcg and monitor as an outpatient Past tobacco abuse DVT prophylaxis. Heparin subcu Full code Admission and Anticipated Discharge Date Admission Date: August 14, 2022 Subjective 08/14/2022 The patient was seen and examined in medical telemetry unit He was admitted with lightheadedness, dizziness and near syncope He was noted to be hypotensive and also acute kidney injury on admission Has been feeling much better since admission Denies any significant symptoms today 08/15/2022 The patient was seen and examined in the medical telemetry unit He has been feeling much better and denies any more symptoms No arrhythmias and no other issues His kidney function has been normalized Review of Systems Review of Systems: All systems reviewed and are unremarkable except as noted below Physical Exam Physical Exam: Lying in bed comfortably Constitutional: well developed, well nourished and + obese; not ill appearing Eyes: PERRL, conjunctivae normal, anicteric sclerae ENMT: external ear and nose normal, oropharynx normal Neck: trachea midline, no thyromegaly Respiratory: no respiratory distress Auscultation: lungs clear to auscultation bilaterally Cardiovascular: Rate/Rhythm: regular rate and regular rhythm; not tachycardic Heart Sounds: normal S1 and normal S2; no murmur Extremities: + edema (No edema) Gastrointestinal (Abdomen): Inspection/Auscultation: normal bowel sounds; abdomen not distended Percussion/Palpation: abdomen soft; abdomen nontender Musculoskeletal: No acute arthritis involving any joint Neurologic: normal touch/pain/proprioception and moves all extremities; no focal motor deficits Psychiatric: A+Ox3, euthymic affect Lymphatic: no cervical or axillary lymphadenopathy Results & Data Results & Data Vital Signs (Past 12 Hours) Vital Signs Temp Pulse Resp BP BP Pulse Ox O2 Del Method 08/15/22 07:22 36.6 C 74 20 114/76 98 Room Air 08/15/22 03:03 36.5 C 70 20 138/87 98 Room Air Laboratory Results Short CBC 08/15/22 Range/Units 05:58 WBC 8.54 (4.8-10.8) K/ul Hgb 16.4 (14.0-18.0) g/dl Hct 46.5 (42.0-52.0) % Plt Count 175 (130-400) K/uL BMP 08/15/22 05:58 Sodium 132 L Potassium 4.6 Chloride 100 Carbon Dioxide 25 BUN 24 H Creatinine 0.98 D Glucose 287 H Calcium 9.1 Medications Administered Current Inpatient Medications Acetaminophen (Acetaminophen 325 Mg Tab) 650 mg PO Q4H PRN PRN Reason: Pain or Fever Stop: 09/13/22 04:36 Aspirin (Aspirin 81 Mg Ectab) [facility] Stop: 09/13/22 08:59 Last Admin: 08/15/22 08:38 Dose: 81 mg Atorvastatin Calcium (Atorvastatin 40 Mg Tab) 40 mg PO QAM [facility] Stop: 09/13/22 08:59 Last Admin: 08/15/22 08:38 Dose: 40 mg Dextrose (Dextrose 50% 50 Ml Syringe) 25 - 50 ml IV UD PRN; Protocol PRN Reason: Hypoglycemia Protocol Stop: 09/13/22 04:36 Glucagon (Glucagon For Inj 1 Mg Vial) 1 mg SQ UD PRN; Protocol PRN Reason: Hypoglycemia Protocol Stop: 09/13/22 04:36 Glucose (Glucose 10 Tab/Tube) 4 - 8 tab PO UD PRN; Protocol PRN Reason: Hypoglycemia Treatment Stop: 09/13/22 04:36 Glucose (Glucose 40% Gel 15 Gm Tube) 15 - 30 gm PO UD PRN; Protocol PRN Reason: Hypoglycemia Protocol Stop: 09/13/22 04:36 Heparin Sodium (Porcine) (Heparin Sod 5,000 Unit/0.5 Ml Vial) 5,000 units SQ Q8 [facility]HUL Stop: 09/13/22 05:59 Last Admin: 08/15/22 05:54 Dose: 5,000 units Promethazine HCl 12.5 mg/ (Sodium Chloride) 50.5 mls @ 202 mls/hr IV Q6H PRN PRN Reason: Nausea And Vomiting Stop: 09/13/22 03:28 Insulin Aspart (Insulin Aspart Per Unit Charge) 0 units SC ACHS [facility] Stop: 09/13/22 04:36 Last Admin: 08/15/22 08:40 Dose: 8 units Insulin Glargine (Lantus Per Unit Charge) 30 units SQ BID [facility] Stop: 09/13/22 08:59 Last Admin: 08/15/22 08:39 Dose: 30 units Levothyroxine Sodium (Levothyroxine Sodium 25 Mcg Tablet) 25 mcg PO DAILYBB [facility] Stop: 09/13/22 06:29 Last Admin: 08/15/22 05:54 Dose: 25 mcg Miscellaneous (Carbohydrates For Hypoglycemia ) 15 - 30 gm PO UD PRN PRN Reason: Hypoglycemia Protocol Stop: 09/13/22 04:36 Oxycodone HCl (Oxycodone Hcl Ir 5 Mg Tab (Immediate Release)) 5 mg PO Q4H PRN PRN Reason: Pain Stop: 08/28/22 03:27 Pantoprazole Sodium (Pantoprazole 40 Mg Tab) 40 mg PO QAM [facility] Stop: 09/13/22 08:59 Last Admin: 08/15/22 08:38 Dose: 40 mg
--- NOTE | 2022-08-15 17:29 | Discharge Summary ---
Date of Service August 15, 2022 Admission HPI Per Admitting Provider History obtained from patient and records. Medical history significant for hypertension, hyperlipidemia, bronchial asthma, PVD as per records, DM 2 insulin requiring, past tobacco abuse. Patient returned to work at [employer] yesterday after being off for a month to recover from elective outpatient trigger finger release surgery at [facility]. Uneventful postop recovery. Pain controlled without OTC NSAID intake. Patient was stocking when he started not feeling well, dizzy, felt like he was going to pass out. No headache, no chest pain, no shortness of breath, no abdominal pain. Patient alerted his work mates later told him that he looked very pale. Transient syncopal event witnessed by workmates. Patient did not fall because of workmates supporting him. No witnessed seizures, tongue biting, incontinence. Patient woke up after a few moments. Patient sent to the ER for evaluation. Currently feels much better after IV fluids. Lowest SBP at the ER 100s. Medical History as above Surgical History : Multiple trigger finger release surgeries, carpal tunnel surgery Family History : Dementia, DM, stroke, alcoholism Personal/Social history past tobacco abuse, No EtOH intake, [employer] employee Admission Exam Per Admitting Provider Physical Exam: GENERAL: Comfortable, pleasant, morbidly obese, no respiratory distress SKIN: Normal color, warm HEENT: [place] palpebral conjunctivae, no ptosis, dry buccal mucosa NECK : Supple, short neck, no tenderness CHEST : CTA, no tenderness HEART : RRR, no obvious murmurs ABDOMEN: Some distention, nontender EXTREMITIES : Minimal LE swelling, no LE tenderness, no other conspicuous deformities noted NEUROLOGIC : Coherent, no facial asymmetry, no other gross focality Principal Diagnosis Dehydration, presyncope, ARF-resolved Discharge Exam Constitutional well developed, well nourished and + obese; not ill appearing Eyes PERRL, conjunctivae normal, anicteric sclerae ENMT external ear and nose normal, oropharynx normal Neck trachea midline, no thyromegaly Respiratory no respiratory distress Auscultation: lungs clear to auscultation bilaterally Cardiovascular Rate/Rhythm: regular rate and regular rhythm; not tachycardic Heart Sounds: normal S1 and normal S2; no murmur Extremities: + edema (No edema) Gastrointestinal (Abdomen) Inspection/Auscultation: normal bowel sounds; abdomen not distended Percussion/Palpation: abdomen soft; abdomen nontender Neurologic normal touch/pain/proprioception and moves all extremities; no focal motor deficits Psychiatric A+Ox3, euthymic affect Lymphatic no cervical or axillary lymphadenopathy Discharge Data Allergies Allergy/AdvReac Type Severity Reaction Status Date / Time No Known Allergies Allergy Verified 12/19/19 08:54 Consultations 08/14/22 02:05 ED Decision to Admit Stat Ordered Studies 08/14/22 01:05 CT head/brain wo con Stat Hospital Course (1) ARF (acute renal failure): Total Time Total Time Spent Total Time Spent (In Minutes): 35 minutes Discharge Plan Discharge Items Patient Disposition: Home - Self-Care Reason For Visit: SYNCOPE, ARF Discharge Diagnosis: Dehydration, presyncope, ARF-resolved Condition on Discharge: Good Activity: Resume your previous activity Non-emergency contact: Primary Care Provider Call non-emergency contact if: you have any medication questions and your symptoms worsen Follow-up/Referrals: Krystina Buckner DO [Primary Care Provider] - 08/23/22 11:10 am Diet: Carb Consistent or DM2 and Heart Healthy Addtl Attending Provider Instructions: Please take precautions to avoid falls Please try to drink more fluid to avoid dehydration No change in medications except you are given a new medicine for your thyroid Please give appointment with your healthcare provider Pending Studies at Discharge: No Stand-Alone Forms: My [employer], Smoking Cessation Medications and DC Order Prescriptions: New levothyroxine [Synthroid] 25 mcg Tablet 25 mcg PO DAILYBB 30 Days Qty: 30 0RF Continued atorvastatin 40 mg Tablet 40 mg PO QAM aspirin [Kush Low Dose Aspirin] 81 mg Tablet,Delayed Release (Dr/Ec) 81 mg PO QAM metformin 1,000 mg Tablet 1,000 mg PO BID lisinopril 10 mg Tablet 10 mg PO QAM insulin aspart U-100 [Novolog FlexPen U-100 Insulin] 100 unit/mL (3 mL) Insulin Pen 54 unit SUBCUT QDB insulin aspart U-100 [Novolog FlexPen U-100 Insulin] 100 unit/mL (3 mL) Insulin Pen 52 unit SUBCUT QDL insulin aspart U-100 [Novolog FlexPen U-100 Insulin] 100 unit/mL (3 mL) Insulin Pen 28 unit SUBCUT QDD omeprazole magnesium [Prilosec OTC] 20 mg Tablet,Delayed Release (Dr/Ec) 20 mg PO QAM Levemir FlexTouch U100 Insulin 100 unit/mL (3 mL) Insulin Pen 40 unit SUBCUT QDB insulin detemir U-100 100 unit/mL (3 mL) Insulin Pen 25 unit SUBCUT QDD Ozempic 1 mg/dose (2 mg/1.5 mL) Pen Injector 1 mg SUBCUT WK Discharge Orders: Discharge Order (Routine); Ordered 08/15/22 Ordered By: Jeff Jasmine Admission Data Admit Date/Time: 08/14/22 03:26 Attending Provider: Jeff Jasmine Admit Provider: Juan Miguel Sifuentes Primary Care Provider: Krystina Buckner Other Providers: Juan Miguel Sifuentes Other Interventions: Discharge Summary Assessment (RN) Last Done: 08/15/22 12:21
== END 2022-08-15 12:37 | disposition home or self-care (01) | DRG 683 ==
LOC: ED 00:53 → 2N 03:26